=== PATIENT | male | born 1975 | race Caucasian/White ===

== ENCOUNTER 2016-07-09 13:03 | Emergency (ER) | payer SELFPAY | END 2016-07-09 15:15 | disposition home or self-care (01) | LOC: ER1 13:03 | DX: S16.1XXA Strain of muscle, fascia and tendon at neck level, initial encounter (principal); M79.642 Pain in left hand; M79.645 Pain in left finger(s); F17.210 Nicotine dependence, cigarettes, uncomplicated; X58.XXXA Exposure to other specified factors, initial encounter; Y92.410 Unspecified street and highway as the place of occurrence of the external cause | CPT/HCPCS: 72125; 73130; 96372; 99283; J1885 ==